=== PATIENT | female | born 1980 | race Two or more races ===

== ENCOUNTER 2021-02-16 16:54 | Emergency (ER) | payer OTHER ==
[~2021-02-16] VITALS: Ht 172.7 cm; Wt 136.1 kg
[2021-02-16] MEDS ORDERED: ATACAND16 MG (17:01)
[2021-02-16] MEDS ORDERED: MEDROLPACK PO (19:09)
[2021-02-16] MEDS ORDERED: SKELAXIN800 MG PO (19:09)
== END 2021-02-16 19:15 | disposition home or self-care (01) ==
LOC: ER 16:54
DX: M54.41 Lumbago with sciatica, right side (principal); M54.16 Radiculopathy, lumbar region